=== PATIENT | male | born 1995 | race Hispanic/Latino ===

== ENCOUNTER 2019-07-18 16:06 | Emergency (ER) | payer OTHER, SELFPAY ==
[~2019-07-18] VITALS: Ht 172.7 cm; Wt 75.0 kg
[2019-07-18] MEDS ORDERED: ACETAMINOPHEN 325 MG TAB PO ONE (16:30)
[2019-07-18 18:00] LABS: INFLUENZA A AMPLIFICATION NEGATIVE (NEGATIVE); INFLUENZA B AMPLIFICATION NEGATIVE (NEGATIVE)
[2019-07-18 18:38] VITALS: BP 128/73
== END 2019-07-18 20:14 | disposition home or self-care (01) ==
LOC: EDBD 16:06 → M ED 16:06
DX: J06.9 Acute upper respiratory infection, unspecified (principal); R50.9 Fever, unspecified